=== PATIENT | female | born 2005 | race Caucasian/White ===

== ENCOUNTER 2024-10-30 13:20 | Emergency (ER) | payer OTHER, SELFPAY ==
[2024-10-30 13:36] VITALS: BP 141/85; PULSE 89; RESP 16; TEMP 36.6; O2SAT 99
--- NOTE | 2024-10-30 14:35 | W.ED.GENAD ---
Discharge Plan Disposition Patient Disposition: Home Condition: Stable Discharge Details Clinical Impression: Nausea and vomiting in Primary Care Provider: Paulette Brian ED Provider: Katja Stafford Home Meds and New Rx's Prescriptions: New pyridoxine (vitamin B6) 25 mg tablet 25 mg PO TID PRNQty: 30 0RF doxylamine succinate 25 mg tablet 12.5 mg PO Q8H PRN PRNQty: 30 0RF No Action Classic 28 mg iron- 800 mcg tablet 1 tab PO DAILY Zyrtec 10 mg capsule 10 mg PO DAILY PRN fluticasone propionate 50 mcg/actuation spray,suspension 1 spray intranasal DAILY Rx Instructions: administer into each nostril budesonide-formoterol [Symbicort] 160-4.5 mcg/actuation HFA aerosol inhaler 2 puff inhalation BID Discharge Instructions Instructions: Morning Sickness (DC) Additional Instructions: You were seen in the emergency department today for evaluation of nausea and vomiting in . In our department had a full physical examination performed, had laboratory studies that were quite reassuring and had an ultrasound showing that your is in the correct location in the uterus with an appropriate heartbeat. You need to keep your appointment for your ultrasound on Saturday, and we have provided you with some medications to try for your nausea and vomiting. You can take the vitamin B6 and Unisom as needed as often as every 8 hours. Please try to eat small frequent meals rather than big meals, and prioritize hydration, complex carbs and proteins. Please follow-up with your primary care provider in the next few days to discuss this visit and any symptoms that change, worsen, or persist. Thank you for allowing us to be part of your care. HPI General Mode of arrival: ambulatory. Date/Time Provider Initiated Documentation: 10/30/24 13:43. Limitations to Documentation: no limitations. Information obtained by: patient and old records reviewed. HPI Narrative: This is a 19-year-old male patient with a past medical history significant for asthma and ADHD, G2, P0 at 8 weeks gestation by last menstrual cycle, presenting for evaluation of nausea with vomiting. She reports that she started to throw up on Saturday, states that she has been unable to keep liquids or food down. She has had some hard stools for which she has been taking MiraLAX. She states that her last ended in a miscarriage, states that she has not been experiencing any pelvic or lower abdominal pain, vaginal bleeding or discharge. 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 She follows with [facility] here and has a plan for a dating ultrasound on Saturday. No personal abdominal surgical history, endorses a hot and cold sensation over the last week. Has not tried any medications for management of her nausea. Related Data Home Medications ?Medication ?Instructions ?Recorded ?Confirmed cetirizine 10 mg capsule (Zyrtec) 10 mg PO DAILY PRN 09/12/21 10/30/24 budesonide-formoterol HFA 160 2 puff inhalation BID 08/10/24 10/30/24 mcg-4.5 mcg/actuation aerosol inhaler (Symbicort) fluticasone propionate 50 1 spray intranasal DAILY 08/10/24 10/30/24 mcg/actuation nasal spray,suspension vits no.126-ferrous fum 1 tab PO DAILY 10/07/24 10/30/24 28 mg iron-folic acid 800 mcg tablet (Classic ) doxylamine succinate 25 mg tablet 12.5 mg (1/2 x 25 mg) PO Q8H PRN 10/30/24 PRN #30 tabs pyridoxine (vitamin B6) 25 mg 25 mg PO TID PRN #30 tabs 10/30/24 tablet Previous Rx's ?Medication ?Instructions ?Recorded doxylamine succinate 25 mg tablet 12.5 mg (1/2 x 25 mg) PO Q8H PRN 10/30/24 PRN #30 tabs pyridoxine (vitamin B6) 25 mg 25 mg PO TID PRN #30 tabs 10/30/24 tablet Allergies Allergy/AdvReac Type Severity Reaction Status Date / Time cat dander Allergy Mild Itching Verified 10/30/24 13:39 weed pollen Allergy Mild Itching, Verified 10/30/24 13:39 Hives, runny nose General Stated Complaint: Nausea/Vomit/Diar CRYS: 3 Exam Narrative Exam Narrative: Gen: Awake and alert, in no apparent distress HEENT: Non-icteric sclera Neck: Supple Lungs: No apparent respiratory distress, normal respiratory effort. CV: Appears well perfused, strong distal pulses, heart with regular rate and rhythm Abdomen: Non-distended, soft, nontender to palpation without rigidity, rebound, or guarding MSK: Moves 4 extremities without apparent limitation in ROM Skin: Visualized skin without rashes, cyanosis. Neuro: Normal Gait, no obvious focal deficits or facial asymmetry. Speaks in full, clear sentences. Psych: Appropriate for situation. Course Vital Signs Vital signs: Vital Signs Temperature 36.6 C 10/30/24 13:36 Pulse 89 10/30/24 13:36 Respiratory Rate 16 10/30/24 13:36 Blood Pressure 141/85 H 10/30/24 13:36 Pulse Oximetry 99 10/30/24 13:36 Temperature 36.6 C 10/30/24 13:36 Temperature Source Oral 10/30/24 13:36 Pulse 89 10/30/24 13:36 Respiratory Rate 16 10/30/24 13:36 Blood Pressure 141/85 H 10/30/24 13:36 Blood Pressure Position Sitting 10/30/24 13:36 Pulse Oximetry 99 10/30/24 13:36 Oxygen Delivery Method Room Air 10/30/24 13:36 Oxygen Flow Rate 0 10/30/24 13:36 Medical Decision Making This is a 19-year-old female patient approximately 8 weeks presenting for evaluation of nausea with vomiting and hard stools. My differential includes but is not limited to nausea and vomiting in early , hyperemesis gravidarum, consider dehydration, metabolic electrolyte derangement, ketonuria, kidney injury. No diarrhea or recent sick exposures to suggest gastroenteritis. Reassuringly, the patient is without related complaints such as abdominal pain, vaginal bleeding or discharge, and I have a low concern for miscarriage, subchorionic hemorrhage, ectopic , PID/TOA. The patient had a bedside ultrasound which shows intrauterine with an appropriate heart rate. She will have an IV established, receive pyridoxine as initial nausea management, IV fluids and we will obtain labs to include CBC, CMP, magnesium, beta quant, and lipase. - I independently interpreted the laboratory studies, which show no significant leukocytosis, anemia, or thrombocytopenia. The chemistry panel is without evidence of electrolyte abnormality, kidney dysfunction, or liver injury. Lipase is low, urinalysis noninfectious and without ketonuria. Beta quant appropriately elevated. After pyridoxine, the patient reports that she still feels quite unwell. She did receive a dose of Zofran in the emergency department. After fluid she was able to tolerate oral liquids and crackers, and has had no vomiting since being in the emergency department. She has no evidence for severe dehydration and was able to tolerate oral intake I think she is appropriate for a trial of outpatient management. Prescriptions for pyridoxine and Unisom were sent to her pharmacy, and she has follow-up scheduled on Saturday for a dating ultrasound. At this time, the patient has had a full medical evaluation and is safe for discharge to home. They are hemodynamically stable, ambulatory, and tolerating PO. They are understanding of the follow-up plan and return precautions. They left our facility without incident. Katja Stafford MD [facility] All Active Problems (Updated 10/30/24 @ 16:57 by Katja Stafford MD) Nausea and vomiting in (Acute) ADHD (Acute) Asthma (Chronic) Social History Smoking/Tobacco Use Status: Never Smoking risk assessment performed?: Yes Alcohol Intake: never Drug use: Never Substance use type: does not use Do you feel safe at home: Yes Do you feel safe in your relationship?: Yes History History 0 Para Hx # Term Pregnancies Multiple births Hx # Pregnancies Ectopic pregnancies AB induced Hx Number of Living Children AB spontaneous POCUS Exam (ED) Limited OB Exam DATE OF EXAM:: 10/30/24 TIME OF EXAM:: 14:23 PROVIDER THAT PERFORMED THE STUDY: Katja Stafford Type of Exam: Pelvic OB Trans Abdominal REASON FOR EXAM: other indication: N/V, confirm location VISUALIZED STRUCTURES: Gestational sac, Uterus and Yolk sac PERTINENT FINDINGS/IMPRESSION: cardiac activity and poll; No free fluid Exam Complete.
[2024-10-30 15:06] LABS: Glucose Negative (Negative)
[2024-10-30 15:07] LABS: Abs Immature Grans 0.06 10^3/uL (0.0-0.06); HCT 42.0 % (36.0-46.0); HGB 14.3 g/dL (11.2-15.7); Immature Grans % 0.5 %; MCH 29.3 pg (27.0-33.0); MCHC 34.0 % (32.0-36.0); MCV 86 fL (80-95); MPV 8.6 fL (8.0-11.0); Platelet Count 464 10^3/uL (130-400); RBC 4.88 10^6/uL (3.93-5.22); RDW 11.8 % (11.7-14.6); RDW-SD 37.1 fL; WBC 11.82 10^3/uL (4.4-10.8)
[2024-10-30 15:20] LABS: Lipase 26 U/L (<78)
[2024-10-30 15:32] LABS: ALT 30 U/L (14-59); AST 17 U/L (15-37); Albumin 4.0 g/dL (3.4-5.0); Alkaline Phosphatase 87 U/L (46-116); Anion Gap 9.5 mmol/L (3-11); BUN 6 mg/dL (7-18); Bilirubin, Total 0.5 mg/dL (0.2-1.0); CO2 25.5 mmol/L (21.0-32.0); Calcium 9.6 mg/dL (8.5-10.1); Chloride 101 mmol/L (98-107); Estimated GFR 137.62 (mL/min/1.73m2); Glucose 83 mg/dL (74-106); Magnesium 2.0 mg/dL (1.8-2.4); Potassium 3.9 mmol/L (3.5-5.1); Sodium 136 mmol/L (136-145); Total Protein 8.0 g/dL (6.4-8.2)
[2024-10-30] MEDS: Lactated Ringers 1,000 ML 1000 ML IV (15:58)
[2024-10-30] MEDS: Ondansetron 4 MG/2 ML VIAL IVP (15:58)
[2024-10-30 17:08] VITALS: BP 139/47; PULSE 83; RESP 16; O2SAT 99
== END 2024-10-30 17:11 | disposition home or self-care (01) ==
PROVIDERS: Emergency Provider Emergency Medicine; PCP Pediatrics
DX: O21.8 Other vomiting complicating pregnancy (principal); Z3A.08 8 weeks gestation of pregnancy
CPT/HCPCS: 76815; 80053; 83690; 96361; 96374; 99284; 81003; 83735; 84702; 85025; J2405

== ENCOUNTER 2024-11-30 04:40 | Outpatient (CLI) | payer OTHER, SELFPAY ==
[2024-11-30 10:50] LABS: Abs Immature Grans 0.05 10^3/uL (0.0-0.06); HCT 36.5 % (36.0-46.0); HGB 12.7 g/dL (11.2-15.7); Immature Grans % 0.4 %; MCH 29.5 pg (27.0-33.0); MCHC 34.8 % (32.0-36.0); MCV 85 fL (80-95); MPV 9.3 fL (8.0-11.0); Platelet Count 396 10^3/uL (130-400); RBC 4.31 10^6/uL (3.93-5.22); RDW 11.6 % (11.7-14.6); RDW-SD 35.7 fL; WBC 11.72 10^3/uL (4.4-10.8)
[2024-11-30 11:15] LABS: Hemoglobin A1C 5.2 % (<5.7)
[2024-11-30 12:06] LABS: TSH (W/Ref FT4) 0.32 uIU/mL (0.36-3.74)
[2024-11-30 18:44] LABS: HIV-1/2 Ag & Ab Screen Negative (Negative)
[2024-11-30 18:47] LABS: Hepatitis C Ab w Rflx HCV PCR Negative (Negative)
[2024-12-01 11:47] LABS: Rubella IgG Ab (UVM) Positive (See Note)
[2024-12-03 15:02] LABS: Syphilis IgG w/Reflex Nonreactive (Nonreactive)
== END 2024-11-30 04:41 | disposition home or self-care (01) ==
LOC: LBO 04:40
PROVIDERS: PCP Pediatrics; Visit Provider Advanced Practice Midwife
DX: Z34.91 Encounter for supervision of normal pregnancy, unspecified, first trimester (principal)
CPT/HCPCS: 36415; 81220; 81222; 81329; 86787; 86803; 86850; 86900; 86901; 87340; 87389; 83036; 84439; 84443; 85025; 86762; 86780

== ENCOUNTER 2024-11-30 11:00 | Outpatient (REF) | payer OTHER, SELFPAY ==
[2024-11-30 13:29] LABS: Cannabinoids THC Negative (Negative); METHADONE URINE SCREEN Negative (Negative)
[2024-12-01 11:09] LABS: Fentanyl Scr w/Rfx Confirm Negative ng/mL (<1)
[2024-12-01 12:15] LABS: Chlamydia Result Negative (Negative); GC Result Negative (Negative)
== END 2024-11-30 11:01 | disposition home or self-care (01) ==
LOC: LBN 11:00
PROVIDERS: PCP Pediatrics; Visit Provider Advanced Practice Midwife
DX: Z34.91 Encounter for supervision of normal pregnancy, unspecified, first trimester (principal); Z3A.11 11 weeks gestation of pregnancy
CPT/HCPCS: 80307; 80348; 87491; 87591; 87086

== ENCOUNTER 2025-02-08 09:02 | Outpatient (REF) | payer MEDICAID, SELFPAY ==
[2025-02-08 10:25] LABS: Prot/Crea Ur Ratio 0.10
== END 2025-02-08 09:03 | disposition home or self-care (01) ==
LOC: LBN 09:02
PROVIDERS: PCP Pediatrics; Visit Provider Advanced Practice Midwife
DX: Z34.92 Encounter for supervision of normal pregnancy, unspecified, second trimester (principal)
CPT/HCPCS: 82565; 84156

== ENCOUNTER 2025-02-08 10:03 | Outpatient (CLI) | payer MEDICAID, SELFPAY ==
[2025-02-08 10:12] LABS: HCT 34.7 % (36.0-46.0); HGB 11.7 g/dL (11.2-15.7); MCH 29.7 pg (27.0-33.0); MCHC 33.7 % (32.0-36.0); MCV 88 fL (80-95); MPV 8.9 fL (8.0-11.0); Platelet Count 392 10^3/uL (130-400); RBC 3.94 10^6/uL (3.93-5.22); RDW 12.5 % (11.7-14.6); RDW-SD 40.7 fL; WBC 17.19 10^3/uL (4.4-10.8)
[2025-02-08 10:38] LABS: ALT 34 U/L (14-59); AST 15 U/L (15-37); Albumin 2.9 g/dL (3.4-5.0); Alkaline Phosphatase 79 U/L (46-116); Anion Gap 10.4 mmol/L (3-11); BUN 5 mg/dL (7-18); Bilirubin, Total 0.2 mg/dL (0.2-1.0); CO2 22.6 mmol/L (21.0-32.0); Calcium 8.9 mg/dL (8.5-10.1); Chloride 105 mmol/L (98-107); Glucose 121 mg/dL (74-106); Potassium 3.9 mmol/L (3.5-5.1); Sodium 138 mmol/L (136-145); Total Protein 6.8 g/dL (6.4-8.2)
== END 2025-02-08 10:04 | disposition home or self-care (01) ==
LOC: LBO 10:04
PROVIDERS: PCP Pediatrics; Visit Provider Advanced Practice Midwife
DX: Z82.49 Family history of ischemic heart disease and other diseases of the circulatory system (principal); Z34.92 Encounter for supervision of normal pregnancy, unspecified, second trimester
CPT/HCPCS: 36415; 80053; 85027

== ENCOUNTER 2025-03-08 04:20 | Outpatient (CLI) | payer MEDICAID, SELFPAY ==
[2025-03-08 12:45] LABS: Glucose,1 Hr (Glucola) 97 mg/dL (80-140)
== END 2025-03-08 04:21 | disposition home or self-care (01) ==
LOC: LBO 04:21
PROVIDERS: PCP Pediatrics; Visit Provider Obstetrics & Gynecology
DX: Z34.93 Encounter for supervision of normal pregnancy, unspecified, third trimester (principal)
CPT/HCPCS: 36415; 82950

== ENCOUNTER 2025-03-08 13:44 | Outpatient (REF) | payer MEDICAID, SELFPAY | END 2025-03-08 13:45 | disposition home or self-care (01) | LOC: LBN 13:44 | PROVIDERS: PCP Pediatrics; Visit Provider Obstetrics & Gynecology | DX: Z34.92 Encounter for supervision of normal pregnancy, unspecified, second trimester (principal) | CPT/HCPCS: 87480; 87510; 87660 ==

== ENCOUNTER 2025-03-22 11:27 | Outpatient (CLI) | payer MEDICAID, SELFPAY ==
[2025-03-22 12:42] LABS: TSH (W/Ref FT4) 0.85 uIU/mL (0.55-4.78)
== END 2025-03-22 11:28 | disposition home or self-care (01) ==
LOC: LBO 11:28
PROVIDERS: PCP Pediatrics; Visit Provider Obstetrics & Gynecology
DX: R53.83 Other fatigue (principal); I10 Essential (primary) hypertension
CPT/HCPCS: 36415; 84443

== ENCOUNTER → 2025-04-06 13:27 | Outpatient (CLI) | payer MEDICAID, SELFPAY ==
--- NOTE | 2025-04-06 07:45 | DI.US_ITS ---
Exam(s) US OB DAVIE WEIGHT EXAM: US OB DAVIE WEIGHT CLINICAL HISTORY: Fundal heights measuring high P08.0. TECHNIQUE: Transabdominal obstetrical ultrasound performed. COMPARISON: US POCUS EXAM from 11/02/2024 FINDINGS:: Number of fetuses: 1 position: TRANS LT Placental location: ANTERIOR. No evidence of previa. BIOMETRIC DATA: BPD: 7.65cm mm = 30weeks 5days HC: 28.95cm mm = 31weeks 6days AC: 27.69cm mm = 31weeks 5days FL: 5.6cm mm = 29weeks 3days EFW: 1,673.95g, 3lb 12.59oz, 84.8% Composite Age: 31weeks JB: 06[birth year]08[birth year]25 Heart Rate: 164bpm Amniotic fluid index: 10.89cm. Visually, amount of fluid is within normal limits. IMPRESSION: size and is measuring large for dates by 10 days. weight is 85 percentile. DAVIE normal. DATA REPOSITORY:
== END ==
PROVIDERS: PCP Pediatrics; Visit Provider Obstetrics & Gynecology
DX: P08.0 Exceptionally large newborn baby (principal); Z34.93 Encounter for supervision of normal pregnancy, unspecified, third trimester
CPT/HCPCS: 76816